=== PATIENT | male | born 1995 | race Caucasian/White ===

== ENCOUNTER 2017-05-21 00:38 | Emergency (ER) | payer BC ==
[2017-05-21] MEDS ORDERED: NS 0.9% 1000 ML* 1,000 ML IV ONE (02:02)
[2017-05-21] MEDS ORDERED: Ketorolac INJ* 30 MG/ML 1 ML VIAL IV PUSH ONE (03:22)
[2017-05-21] MEDS ORDERED: diPHENhydraMINE IV* 50 MG/ML 1 ml VIAL (BENADRYL) IV ONE (03:22)
[2017-05-21] MEDS ORDERED: Ondansetron INJ* 2 MG/ML VIAL IV ONE (03:22)
--- NOTE | 2017-05-21 04:01 | ED ---
Headache - HPI Summary HPI Summary: Pt here w/ migraine like sx - started with a visual aura and metallic taste followed by a B/L temporal JUDD. Admits work as been stressful and had a URI over the holidays but it was brief and uneventful. He took ibuprofen and then excederin with relief of JUDD but metallic taste persisted. He then experienced Rt side face tightness and lip tingling. No facial droop however female partner thought she saw his lip drooping earlier. No slurred speech, weakness, lethargy , syncope, vomiting or visual change. H/o migraines and all sx were similar except facial tightness and lip tingling. No h/o trauma to head and no medical hx of neuropathic dz, bleeding d/o's, ENT issues, dental issues. Breathing and swallowing well w/o fever, chills, chest pain or SOB. - History Of Current Complaint Chief Complaint: EDDizziness Stated Complaint: POSS MIGRAINE Time Seen by Provider: 05/21/17 01:34 Hx Obtained From: Patient, Family/Assistant Kitchen Manager - female partner - Allergies/Home Medications Allergies/Adverse Reactions: Allergies Allergy/AdvReac Type Severity Reaction Status Date / Time Amoxicillin Allergy Severe Hives Verified 05/21/17 00:44 Penicillins [PCN] Allergy Severe Hives Verified 05/21/17 00:44 PMH/Surg Hx/FS Hx/Imm Hx Previously Healthy: Yes Endocrine/Hematology History: Denies: Hx Anticoagulant Therapy, Hx Blood Disorders, Hx Diabetes, Hx Thyroid Disease, Hx Anemia, Hx Unexplained Bleeding, Hx Coagulopothy, Autoimmune Disease Cardiovascular History: Denies: Hx Aneurysm History: Denies: Hx Kidney Stones Sensory History: Denies: Hx Contacts or Glasses Opthamlomology History: Denies: Hx Contacts or Glasses Infectious Disease History: No Infectious Disease History: Denies: Traveled Outside the [place] in Last 30 Days - Family History Known Family History: Positive: None - Social History Occupation: Employed Full-time Lives: With Family Alcohol Use: Weekly Hx Substance Use: No Substance Use Type: Reports: None Hx Tobacco Use: No Smoking Status (MU): Never Smoked Tobacco Review of Systems Constitutional: Negative Negative: Fever, Chills, Fatigue Eyes: Other - aura Negative: Photophobia, Blurred Vision, Diplopia, Drainage, Erythema ENT: Negative Negative: Epistaxis, Dental Pain, Sore Throat, Ear Ache, Nasal Discharge Cardiovascular: Negative Negative: Palpitations, Chest Pain Respiratory: Negative Negative: Shortness Of Breath, Cough Gastrointestinal: Negative Negative: Abdominal Pain, Vomiting, Diarrhea, Nausea Positive: no symptoms reported Musculoskeletal: Negative Negative: Arthralgia, Myalgia, Decreased ROM Skin: Negative Negative: Rash, Bruising Positive: Headache, Paresthesia. Negative: Weakness, Numbness, Syncope, Slurred Speech Psychological: Normal All Other Systems Reviewed And Are Negative: Yes Physical Exam Triage Information Reviewed: Yes Vital Signs On Initial Exam: Initial Vitals Temp Pulse Resp BP Pulse Ox 97.6 F 91 16 146/66 99 05/21/17 00:39 05/21/17 00:39 05/21/17 00:39 05/21/17 00:39 05/21/17 00:39 Vital Signs Reviewed: Yes Appearance: Positive: Well-Appearing, No Pain Distress, Well-Nourished Skin: Positive: Warm, Skin Color Reflects Adequate Perfusion, Dry - no erythema , ecchymosis or lesions over affected area Head/Face: Positive: Normal Head/Face Inspection - NTTP, no edema. Negative: Temporal Artery Tenderness, TMJ Tenderness, Scalp Eyes: Positive: Normal, EOMI, KAMILLA, Conjunctiva Clear. Negative: Conjunctiva Inflammed, Discharge ENT: Positive: Normal ENT inspection, Hearing grossly normal, Pharynx normal, TMs normal, Uvula midline. Negative: Nasal congestion, Nasal drainage, Trismus , Muffled voice, Hoarse voice, Dental tenderness, Sinus tenderness Dental: Negative: Abscess @ Neck: Positive: Supple, Nontender, No Lymphadenopathy Respiratory/Lung Sounds: Positive: Clear to Auscultation, Breath Sounds Present. Negative: Rales, Rhonchi, Stridor, Wheezes Cardiovascular: Positive: Normal, RRR, S1, S2. Negative: Pulses are Symmetrical in both Upper and Lower Extremities, Murmur, Rub, Leg Edema Left, Leg Edema Right Abdomen Description: Positive: Nontender, No Organomegaly, Soft Bowel Sounds: Positive: Present Musculoskeletal: Positive: Normal, Strength/ROM Intact Neurological: Positive: Normal, Sensory/Motor Intact, Alert, Oriented to Person Place, Time, CN Intact II-III, Reflexes Intact, Heel to Toe, Finger to Nose, Facial Symmetry, Speech Normal. Negative: Pronator Drift Present Psychiatric: Positive: Normal - Tye Coma Scale Coma Scale Total: 15 Diagnostics - Vital Signs Vital Signs Temp Pulse Resp BP Pulse Ox 05/21/17 02:35 92 18 132/79 98 05/21/17 00:39 97.6 F 91 16 146/66 99 - Laboratory Lab Statement: Any lab studies that have been ordered have been reviewed, and results considered in the medical decision making process. Re-Evaluation - Re-Evaluation First Eval Change: Improved - no pain but still has metallic taste Headache Course/Dx - Course Course Of Treatment: CT brain and face ordered - brain w/o intracranial hemorrhage, midline shift or mass however maxilofacial reveals polyps or cysts in B/L maxillary sinuses. Sx could be from migraine d/t stress, increased caffeine intake as he switched to ag augustine tea this week and has been drinking alot of it OR from inflammed polyps/cysts in sinuses. Migraine cocktail was provided which should also serve to reduce inflammation of polyps to some degree. Pt stable at time of d/c and advise f/u w/ PCP (migraine) and ENT ( polyps/cysts). - Diagnoses Provider Diagnoses: Migraine with aura, Maxillary polyp of sinus Discharge - Discharge Plan Condition: Stable Disposition: HOME Patient Education Materials: Migraine Headache (ED), Nasal Polyps (ED) Forms: *Work Release Referrals: Lyndon Wong MD [Medical Doctor] - [facility] [Outside] Additional Instructions: Get rest, stay hydrated and reduce ag augustine tea intake/caffeine intake in the event this triggered your migraine. Follow-up with PCP. You were also found to have polyps/cysts in both of your maxillary sinuses. This may be addressed by an appointment with ENT. Call tomorrow to schedule an appointment. *If symptoms persist or worsen despite trying ibuprofen and saline nasal spray, return to ED
[2017-05-21 04:28] VITALS: BP 127/64
--- NOTE | 2017-05-21 08:14 | RAD ---
Indication: Migraine headaches. CT of the brain was performed without IV contrast. Ventricular structures are midline. No midline shift is noted. The extra-axial spaces are unremarkable. There is no evidence of intracranial mass or hemorrhage. No other high or low density lesions are identified. Mastoid air cells and paranasal sinuses are clear. IMPRESSION: There is no evidence of intracranial mass or hemorrhage is noted.
--- NOTE | 2017-05-21 08:19 | RAD ---
Indication: Headaches. Sinus facial numbness. CT of the sinuses was obtained in the axial plane. Sagittal and coronal reconstructed images were obtained. Mastoid air cells are well aerated. Mandible is intact without evidence of fracture. The maxilla and pterygoid plates are grossly unremarkable. The orbits are intact without evidence of fracture. Nasal arch is intact. The frontal sinuses, ethmoid air cells are clear. Mucus retention cyst is noted in the maxillary sinuses. IMPRESSION: NO FRACTURE OF THE FACIAL BONES IS IDENTIFIED. MUCUS RETENTION CYSTS OF THE MAXILLARY SINUSES. IF THERE IS CONCERN FOR 7TH NERVE PALSY MRI OF THE INTERNAL AUDITORY CANALS IS SUGGESTED.
== END 2017-05-21 04:28 | disposition home or self-care (01) ==
LOC: ED 00:38
DX: G43.109 Migraine with aura, not intractable, without status migrainosus (principal); J33.8 Other polyp of sinus; Z88.3 Allergy status to other anti-infective agents; Z88.0 Allergy status to penicillin
CPT/HCPCS: 70450; 70486; 96361; 96374; 96375; 99282; J1200; J1885; J2405